=== PATIENT | female | born 1950 | race Caucasian/White ===

== ENCOUNTER → 2016-08-10 09:04 | Outpatient (CLI) | payer MEDICARE ==
[2016-08-10 10:11] LABS: ANION GAP 13.4 mmol/L (8-16); CALCIUM 9.6 mg/dL (8.5-10.1); CARBON DIOXIDE 30.7 mmol/L (21.0-32.0); CREATININE - SERUM 0.9 mg/dL (0.6-1.3); POTASSIUM - SERUM 4.1 mmol/L (3.5-5.1)
== END | disposition home or self-care (01) ==
LOC: D.MRI 09:04
PROVIDERS: Family Medicine
DX: R20.9 Unspecified disturbances of skin sensation (principal)

== ENCOUNTER → 2017-04-26 11:53 | Outpatient (CLI) | payer MEDICARE, BC ==
[2017-04-26 16:00] LABS: APPEARANCE CLEAR (CLEAR); BILIRUBIN NEGATIVE (NEGATIVE); COLOR YELLOW (YELLOW); GLUCOSE NEGATIVE (NEGATIVE); KETONE NEGATIVE (NEGATIVE); LEUKOCYTE ESTERASE NEGATIVE (NEGATIVE); NITRITE NEGATIVE (NEGATIVE); PROTEIN NEGATIVE (NEGATIVE); SPECIFIC GRAVITY 1.015 (1.005-1.020); UROBILINOGEN NORMAL (NORMAL)
[2017-04-26 16:06] LABS: C-REACTIVE PROTEIN 3.2 mg/dL (0.0-0.9)
[2017-04-26 17:05] LABS: ERYTHROCYTE SEDIMENTATION RATE 28 mm/hr (0-30)
[2017-04-27 09:16] LABS: ANA REFLEX - DIRECT Negative (Negative)
[2017-04-27 22:08] LABS: CYCLIC CITRULL PEPTIDE IGG/IGA 8 units (0-19)
== END | disposition home or self-care (01) ==
LOC: D.LABREF 11:53
PROVIDERS: Student in an Organized Health Care Education/Training Program
DX: M79.1 Myalgia (principal); M19.90 Unspecified osteoarthritis, unspecified site

== ENCOUNTER → 2017-10-07 20:14 | Outpatient (CLI) | payer MEDICARE, BC | END | disposition home or self-care (01) | LOC: D.MAMMO 08-10 11:45 | DX: Z12.31 Encounter for screening mammogram for malignant neoplasm of breast (principal) ==

== ENCOUNTER → 2019-05-21 09:27 | Outpatient (CLI) | payer MEDICARE, BC ==
--- NOTE | 2019-05-23 15:08 | EC ---
PATIENT:BEN WATERMAN DATE OF SERVICE: 05/21/19 SEX: F MEDICAL RECORD: [id number] DATE OF : 50 LOCATION:[facility] AGE OF PATIENT: 68 ADMISSION DATE: 05/21/19 REFERRING PHYSICIAN: INTERPRETING PHYSICIAN: PASCALE CAMPUZANO MD ECHOCARDIOGRAM REPORT ECHO CHARGES 4 ECHO COMPLETE Date: 05/21/19 CLINICAL DIAGNOSIS: H/O HTN/CAD ECHOCARDIOGRAPHIC MEASUREMENTS (adult normal given) AC root (d.<3.7cm) 3.0 cm LV Septum d (<1.2 cm> 1.1 cm Valve Excursion 2.0 cm LV Septum (systole) 1.6 cm Left Atria (s.<4.0cm> 4.3 cm LVPW d(<1.2cm) 1.1 cm RV (d.<2.3cm) 2.4 cm LVPW (sytole) 1.7 cm LV diastole(<5.6CM) 4.8 cm MV E-F(>70mm/sec) cm LV systole 2.2 cm LVOT Diameter 1.7 cm MV exc.(>10mm) cm Est.ejection fraction (50-75%) % DOPPLER: LVIT cm/sec A 60.0 cm/sec E 102 cm/sec LA cm/sec RVSP 23.0 mmHg LVOT 138 cm/sec AOP1/2T m/s Asc. Ao 163 cm/sec RVOT 56.0 cm/sec RA cm/sec PA 100 cm/sec AV Gradient Peak 11.0 mmHg AV Mean 5.0 mmHg AV Area 1.8 cm MV Gradient Peak 6.8 mmHg MV Mean 2.0 mmHg MV Area cm COMMENTS: OP - HC Quar[employer] Plug [employer] Feather Driller: 1 LILLIAN DESIROE Fiction And Nonfiction Prose Writer: 3 Dr. Schmidt TAPE# PACS Pericardial Effusion N DATE OF SERVICE: Adequate 2D, color flow, spectral Doppler, and M-mode. No LVH. LV internal dimensions are normal. Wall motion is normal. EF is greater than or equal to 55%. Aortic valve is tricuspid. No evidence of stenosis by Doppler interrogation. Left atrium is dilated at 4.3 cm. Mitral valve shows no prolapse. Trace MR. Right-sided chambers grossly normal. Trace TR. TRANSINT:[id number] Voice Confirmation ID: [id number] DOCUMENT ID: [id number] ECHOCARDIOGRAM REPORT [id number] BEN WATERMAN,PASCALE Stephens MD at 1508 CC: [id number] DICTATION DATE: 05/22/19 1330 DATA ENTRY SUPERVISOR: 05/22/19 1350 DEP CLI 05/21/19 [place] [id number] [place] [id number]
== END ==
LOC: D.HCCECHO 09:27
PROVIDERS: ATTEND Internal Medicine Interventional Cardiology
DX: I25.10 Atherosclerotic heart disease of native coronary artery without angina pectoris (principal)

== ENCOUNTER → 2019-07-30 09:33 | Outpatient (CLI) | payer MEDICARE, BC ==
--- NOTE | ~2019-07-30 | ST ---
PATIENT:BEN WATERMAN MEDICAL RECORD: [id number] SEX: F LOCATION:[facility] ORDER #: ADMISSION DATE: 07/30/19 AGE OF PATIENT: 69 REFERRING PHYSICIAN: INTERPRETING PHYSICIAN: ADAL MOHAN MD DATE OF SERVICE: 07/30/2019 PROCEDURE: Nuclear stress test. INDICATION: Angina, hypertension, hyperlipidemia. TECHNIQUE: She was exercised on standard Lexiscan protocol with 28 mCi of sestamibi injected at peak stress, 9 mCi used previously for rest images. FINDINGS: Gated SPECT reveals preserved ejection fraction at 65% with decreased thickening and brightening throughout the anterior segments. SPECT imaging; Cardiolite was used as myocardial perfusion agent. There is a fixed perfusion defect anteroapically. No evidence of reversible ischemia. The remaining segments are with homogeneous uptake at rest and stress. OVERALL IMPRESSION: This is a stable nuclear stress test only suggestive of previous anteroapical myocardial infarction. This very well may be artifactual from breast artifact. Otherwise, there is no reversible ischemia present and ejection fraction preserved at 65%. Continue medical management of the coronary artery disease and cardiac risk factors. TRANSINT:[id number] Voice Confirmation ID: [id number] DOCUMENT ID: [id number] ADAL MOHAN MD CC: LAZARO CARRILLO MD [id number] DICTATION DATE: 07/30/19 1543 JUNIOR ACCOUNTANT: 07/31/19 0711 [facility] CLI 07/30/19 [place] [id number] [place] [address]
== END | disposition home or self-care (01) ==
LOC: D.HCCARDIO 09:33
PROVIDERS: ATTEND Internal Medicine Interventional Cardiology
DX: I20.9 Angina pectoris, unspecified (principal)

== ENCOUNTER 2020-03-05 13:30 | Outpatient (CLI) | payer MEDICARE, BC ==
[2019-09-18 18:39] VITALS: BMI 40.4
[~2020-03-05 13:30] MED LIST: ALDACTONE25 MG PO; AMBIEN10 MG PO; ATARAX 25 MG TA25 MG PO; CATAPRES0.1 MG PO; CELEXA40 MG PO; FERROUS SULFAT325 MG PO; FLOVENT DISKU100 MCG INH; FOLIC ACID1 MG PO; GLIMEPIRIDE2 MG PO; GLUCOPHAGE1000 MG PO; HYDROCHLOROTHIA50 MG PO; HYDROCODON-ACE1 EA10 PO; K-TAB10 MEQ PO; LOSARTAN-HCTZ1 EAC1 PO; METHOTREXATE2.5 MG PO; PEPCID AC20 MG PO; PREDNISONE2.5 MG PO; SKELAXIN800 MG PO; VITAMIN D10000 UNI1 PO; ZANAFLEX4 MG PO
== END 2020-03-05 13:31 | disposition home or self-care (01) ==
LOC: D.MAMMO 13:30
PROVIDERS: ATTEND Family Medicine
DX: Z12.31 Encounter for screening mammogram for malignant neoplasm of breast (principal)